=== PATIENT | female | born 1950 | race Hispanic/Latino ===

== ENCOUNTER 2017-12-04 12:26 | Observation (INO) | payer BC, MEDICARE ==
[2017-12-04] MEDS ORDERED: Lidocaine 5% Patch TD ONE (12:53)
--- NOTE | 2017-12-04 13:22 | ED PDOC ---
Arrival/HPI - General Chief Complaint: GI Problem Time Seen by Provider: 12/04/17 12:33 Historian: Patient, Family (sister) - History of Present Illness Narrative History of Present Illness (Text): 12/04/17 13:05 A 67 y/o F w/ h/o myomectomy and scoliosis, presents to the emergency department complaining of back pain and rectal bleeding. She reports having back pain for 2 years. States she is normally prescribed epidurals for her back , but has also been given Tramadol, Naprosen, and Motrin 800 mg, which she states she takes every day for pain. For couple of weeks, patient suddenly began experiencing dark bloody stools, skin pallor, and significant weight loss , which she explains she has never had before. Patient assumes bleeding has been caused by all the NSAIDs that she currently takes. She reports Dr. Zamorano visiting her at home and giving her recommendations to stop taking the medications and seek medical at the emergency room. Patient mentions experiencing weakness, loss of appetite, and has difficulty ambulating due to back pain. Also, patient notes taking stool softener and drinks prune juice every day. Patient denies any abdominal pain or any other complaints at this time. PMD: Dr. Zamorano Time/Duration: > month Symptom Onset: Gradual Symptom Course: Worsening Quality: Aching, Unable to Describe Severity Level: Moderate Context: Home Past Medical History - Provider Review Nursing Documentation Reviewed: Yes - Infectious Disease Hx of Infectious Diseases: None - Reproductive Menopause: Yes - HEENT Hx HEENT Disorder: No - Renal Hx Renal Disorder: No - Endocrine/Metabolic Hx Hypothyroidism: Yes - Musculoskeletal/Rheumatological Hx Back Pain: Yes - Psychiatric Hx Psychophysiologic Disorder: No Hx Substance Use: No - Anesthesia Hx Anesthesia: No Family/Social History - Physician Review Nursing Documentation Reviewed: Yes Family/Social History: No Known Family HX Smoking Status: Current Some Days Smoker Hx Alcohol Use: Yes Frequency of alcohol use: Socially Hx Substance Use: No Allergies/Home Meds Allergies/Adverse Reactions: Allergies Penicillins Allergy (Verified 12/04/17 12:32) ITCHING Review of Systems - Physician Review All systems were reviewed & negative as marked: Yes - Review of Systems Constitutional: Other (weakness due to back pain) Gastrointestinal: Stool Changes (dark bloody stools), Appetite Changes (loss of appetite). absent: Abdominal Pain Musculoskeletal: Back Pain (has difficulty ambulating due to pain) Skin: Normal. absent: Pruritis, Skin Lesions Neurological: absent: Headache, Dizziness, Focal Weakness Hemo/Lymphatic: Easy Bleeding Physical Exam Vital Signs Reviewed: Yes Vital Signs Temp Pulse Resp BP Pulse Ox 12/04/17 15:30 58 L 18 125/68 98 12/04/17 14:12 59 L 18 128/71 98 12/04/17 12:35 97.9 F 74 18 130/74 98 12/04/17 12:32 97.9 F 58 L 18 130/74 98 Temperature: Afebrile Blood Pressure: Normal Pulse: Regular Respiratory Rate: Normal Appearance: Positive for: Cachectic Pain Distress: None Mental Status: Positive for: Alert and Oriented X 3 - Systems Exam Head: Present: Atraumatic, Normocephalic Pupils: Present: PERRL Extroacular Muscles: Present: EOMI Conjunctiva: Present: Normal Mouth: Present: Moist Mucous Membranes Neck: Present: Normal Range of Motion Respiratory/Chest: Present: Clear to Auscultation, Good Air Exchange. No: Respiratory Distress, Accessory Muscle Use, Wheezes, Rales, Rhonchi Cardiovascular: Present: Regular Rate and Rhythm, Normal S1, S2. No: Murmurs Abdomen: No: Tenderness, Distention, Peritoneal Signs, Rebound, Guarding Rectal: Present: Other (FOBT is negative) Back: Present: Normal Inspection Upper Extremity: Present: Normal Inspection. No: Cyanosis, Edema Lower Extremity: Present: Normal Inspection. No: Edema Neurological: Present: GCS=15, CN II-XII Intact, Speech Normal Skin: Present: Pale Psychiatric: Present: Alert, Oriented x 3, Normal Insight, Normal Concentration Medical Decision Making ED Course and Treatment: 12/04/17 13:10 Impression: 67 y/o F with back pain and rectal bleeding most worrisome for GI bleeding Given patient had been having melanotic stools for the last 2 weeks, monitoring of his Hgb and trending for any decrease in blood counts. May consider Protonix drip and consider emergent endoscopy. Differential Diagnosis included but are not limited to: PUD Angiodysplasia Polyp Plan: --EKG --Chest X-ray --Labs --Lidoderm --IVF --Percocet --Reassess and disposition Progress Notes: 12/04/2017 13:47 Chest X-ray IMPRESSION: No active disease. Dictator: Christoph Burns MD Hgb 10.7. Spoke to Dr. Zamorano(PCP) who requests admission to her service with Dr. Conner(GI) as consult. Spoke to Dr. Conner who requests for patient to remain NPO in preparation for endoscopy today. He does not think Protonix infusion is necessary at this time. He states patient may be started on Protonix PO QD. - Lab Interpretations Lab Results: 12/04/17 13:37 12/04/17 13:37 Lab Results 12/04/17 13:53: Blood Type Confirm O POSITIVE 12/04/17 13:37: Blood Type O POSITIVE, Antibody Screen Negative, BBK History Checked No verified bt 12/04/17 13:37: Sodium 143, Potassium 4.5, Chloride 106, Carbon Dioxide 25, Anion Gap 16, BUN 9, Creatinine 0.5 L, Est GFR ( Amer) > 60, Est GFR (Non -Af Amer) > 60, Random Glucose 86, Calcium 9.7, Total Bilirubin 0.3, AST 29, ALT 33, Alkaline Phosphatase 54, Total Protein 7.9, Albumin 4.8, Globulin 3.1, Albumin/Globulin Ratio 1.5 12/04/17 13:37: PT 10.0, INR 0.88, APTT 34.7 12/04/17 13:37: WBC 6.3, RBC 3.19 L, Hgb 10.7 L, Hct 32.3 L, MCV 101.3, MCH 33.5 , MCHC 33.1, RDW 16.4 H, Plt Count 545 H, MPV 8.9, Gran % 56.1, Lymph % (Auto) 31.0, Sargent % (Auto) 8.1 H, Eos % (Auto) 4.3, Baso % (Auto) 0.5, Gran # 3.53, Lymph # (Auto) 2.0, Sargent # (Auto) 0.5, Eos # (Auto) 0.3, Baso # (Auto) 0.03 - RAD Interpretation Radiology Orders: 12/04/17 12:55 CHEST TWO VIEWS (PA/LAT) [RAD] Stat - Medication Orders Current Medication Orders: Sodium Chloride (Sodium Chloride 0.45%) 1,000 mls @ 40 mls/hr IV .Q24H KRISTOPHER Last Admin: 12/04/17 18:25 Dose: 40 mls/hr eMAR Start Stop Document 12/04/17 18:25 GLI (Rec: 12/04/17 18:25 GLI [facility] [id number]) Intravenous Solution Start Date 12/04/17 Start Time 18:25 End Date 12/04/17 Morphine Sulfate (Morphine) 1 mg IVP Q3H PRN PRN Reason: Pain, moderate (4-7) Last Admin: 12/04/17 20:37 Dose: 1 mg MAR Pain Assessment Document 12/04/17 20:37 SRE (Rec: 12/04/17 20:38 SRE [id number]) Pain Reassessment Is this a pain reassessment? No Sleep Is patient sleeping during reassessment? No Presence of Pain Presence of Pain Yes Pain Scale Used Pain Scale Used Numeric Location Pain Location Body Site Back Description Description Chronic Intensity of Pain at present 6 IVP Administration Document 12/04/17 20:37 SRE (Rec: 12/04/17 20:38 SRE [id number]) Charges for Administration # of IVP Administrations 1 Pantoprazole Sodium (Protonix Inj) 40 mg IVP Q12 KRISTOPHER Last Admin: 12/04/17 22:03 Dose: 40 mg IVP Administration Document 12/04/17 22:03 SRE (Rec: 12/04/17 22:03 SRE [id number]) Charges for Administration # of IVP Administrations 1 Discontinued Medications Sodium Chloride (Sodium Chloride 0.9%) 1,000 mls @ 999 mls/hr IV .Q1H1M STA Stop: 12/04/17 14:42 Last Admin: 12/04/17 14:00 Dose: 999 mls/hr eMAR Start Stop Document 12/04/17 14:00 HI (Rec: 12/04/17 15:08 HI [facility] [id number]) Intravenous Solution Start Date 12/04/17 Start Time 14:00 Lidocaine (Lidoderm) 1 ea TD ONCE ONE Stop: 12/04/17 12:54 Last Admin: 12/04/17 14:02 Dose: Not Given Non-Admin Reason: Patient Refused Oxycodone/Acetaminophen (Percocet 5/325 Mg Tab) 1 tab PO STAT STA Stop: 12/04/17 15:01 Last Admin: 12/04/17 15:06 Dose: 1 tab MAR Pain Assessment Document 12/04/17 15:06 HI (Rec: 12/04/17 15:07 HI [facility] [id number]) Pain Reassessment Is this a pain reassessment? No Presence of Pain Presence of Pain Yes Pain Scale Used Pain Scale Used Numeric Location Upper or Lower Lower Pain Location Body Site Back Description Pain Behavior Crying Facial Grimacing Re-Assess: [facility] Pain Assessment Document 12/04/17 16:06 GLI (Rec: 12/04/17 18:26 GLI [facility] [id number]) Pain Reassessment Is this a pain reassessment? No Sleep Is patient sleeping during reassessment? No Presence of Pain Presence of Pain No Pantoprazole Sodium (Protonix Inj) 40 mg IVP BID KRISTOPHER - Scribe Statement The provider has reviewed the documentation as recorded by the Lucero Arndt Provider Scribe Provider Scribe Attestation: All medical record entries made by the Scribe were at my direction and personally dictated by me. I have reviewed the chart and agree that the record accurately reflects my personal performance of the history, physical exam, medical decision making, and the department course for this patient. I have also personally directed, reviewed, and agree with the discharge instructions and disposition. Disposition/Present on Arrival - Present on Arrival Any Indicators Present on Arrival: No History of DVT/PE: No History of Uncontrolled Diabetes: No Urinary Catheter: No History of Decub. Ulcer: No History Surgical Site Infection Following: None - Disposition Have Diagnosis and Disposition been Completed?: Yes Diagnosis: GI bleed Disposition: HOSPITALIZED Disposition Time: 14:31 Patient Plan: Admission Patient Problems: Current Active Problems Problem Status Onset GI bleed Acute Condition: STABLE
[2017-12-04] MEDS ORDERED: Sodium Chloride 0.9% 1,000 ML IV STA (13:42)
--- NOTE | 2017-12-04 13:49 | RAD ---
Date of service: 12/04/2017 HISTORY: Pre-procedure COMPARISON: No prior. TECHNIQUE: Chest PA and lateral FINDINGS: LUNGS: Hyperinflation, manifestations of COPD. No active pulmonary disease. PLEURA: No significant pleural effusion identified. No pneumothorax apparent. CARDIOVASCULAR: No radiographic findings to suggest acute or significant cardiovascular disease. OSSEOUS STRUCTURES: No significant abnormalities. VISUALIZED UPPER ABDOMEN: Normal. OTHER FINDINGS: None. IMPRESSION: No active disease.
[2017-12-04 13:50] LABS: BASO # 0.03 K/mm3 (0.0-2.0); BASO % 0.5 % (0.0-3.0); EOS # 0.3 (0.0-0.7); EOS % 4.3 % (1.5-5.0); GRAN # 3.53 (1.4-6.5); GRAN % 56.1 % (50.0-68.0); HEMOGLOBIN 10.7 g/dL (12.0-16.0); MEAN CELL VOLUME 101.3 fl (80.0-105.0); MEAN CORPUSCULAR HEMOGLOBIN 33.5 pg (25.0-35.0); MEAN CORPUSCULAR HGB CONC 33.1 g/dl (31.0-37.0); MEAN PLATELET VOLUME 8.9 fl (7.0-11.0); MONO # 0.5 (0.1-0.6); MONO % 8.1 % (1.0-6.0); RBC 3.19 10^6/uL (3.5-6.1); RED CELL DISTRIBUTION WIDTH 16.4 % (11.5-14.5); WHITE BLOOD COUNT 6.3 10^3/ul (4.5-11.0)
[2017-12-04 13:59] LABS: ALB/GLOB RATIO 1.5 (1.1-1.8); ALBUMIN 4.8 g/dL (3.0-4.8); ALT/SGPT 33 U/L (7-56); AST/SGOT 29 U/L (14-36); BLOOD UREA NITROGEN 9 mg/dL (7-21); CALCIUM 9.7 mg/dL (8.4-10.5); GFR AFRICAN-AMERICAN > 60; GFR NON-AFRICAN AMERICAN > 60
[2017-12-04 14:01] LABS: PARTIAL THROMBOPLASTIN TIME 34.7 Seconds (25.1-36.5)
[2017-12-04 14:14] LABS: INR 0.88
[2017-12-04] MEDS ORDERED: Oxycodone/Acetaminophen 5/325 mg Tab PO STA (15:00)
--- NOTE | 2017-12-04 15:35 | CP.PCM.CON ---
History of Present Illness - History of Present Illness History of Present Illness: GI Fellow PGY5 Consult Note This is a 67yF with pmhx of chronic low back pain from severe scoliosis, myomectomy who presents to the emergency department complaining of back pain and black stool. Patient reports noting black stool for 1.5 weeks now with multiple BMs daily. No prior hx of rectal bleeding, melena or hematochezia. Patient reports she has had back pain for years and has been taking Tramadol, Naproxin or Motrin 600 mg, which she states she takes every day for pain. Afterwards for couple of weeks, patient suddenly began experiencing dark bloody stools. Pt denies taking Peptobismol but started taking iron three days ago after dark stools. After following-up with PMD Dr. Zamorano, he recommends patient stop taking the medications and seek medical at the emergency room. She notes noticing having significant weight loss based on her clothes feeling looser, and that her skin has become paler. Patient mentions experiencing weakness, loss of appetite, and has difficulty ambulating due to back pain. She also takes excedrin 2-3 times a week for headaches. Patient denies any abdominal pain, N/V, GERD. No prior hx of PUD. She had an EGD/Colonoscopy with Dr. Alicia in 2012. Pt is not on any OAC and no anti platelets. ROS: A 12pt ROS was negative except as above PmHx: As stated above PsHx: None reported SHx: Denies tobacco, etoh or drugs FHx: Neg for colon cancer Past Patient History - Infectious Disease Hx of Infectious Diseases: None - Past Social History Smoking Status: Current Some Days Smoker - HEENT Hx HEENT Problems: No - RENAL Hx Chronic Kidney Disease: No - ENDOCRINE/METABOLIC Hx Hypothyroidism: Yes - MUSCULOSKELETAL/RHEUMATOLOGICAL Hx Back Pain: Yes - PSYCHIATRIC Hx Psychophysiologic Disorder: No Hx Substance Use: No - ANESTHESIA Hx Anesthesia: No Meds Allergies/Adverse Reactions: Allergies Allergy/AdvReac Type Severity Reaction Status Date / Time Penicillins Allergy ITCHING Verified 12/04/17 12:32 - Medications Medications: Current Medications Pantoprazole Sodium (Protonix Inj) 40 mg IVP BID KRISTOPHER Physical Exam - Constitutional Appears: Non-toxic, No Acute Distress, Cachectic - Head Exam Head Exam: ATRAUMATIC, NORMAL INSPECTION, NORMOCEPHALIC - Eye Exam Eye Exam: EOMI, Normal appearance, PERRL Pupil Exam: PERRL - ENT Exam ENT Exam: Mucous Membranes Moist - Neck Exam Neck exam: Positive for: Full Rom, Normal Inspection - Respiratory Exam Respiratory Exam: Clear to Auscultation Bilateral, NORMAL BREATHING PATTERN - Cardiovascular Exam Cardiovascular Exam: REGULAR RHYTHM, RRR, +S1, +S2 - GI/Abdominal Exam GI & Abdominal Exam: Normal Bowel Sounds, Soft. absent: Distended, Firm, Guarding, Organomegaly, Tenderness - Rectal Exam Rectal Exam: NORMAL INSPECTION. absent: Black Stool, Bloody Stool, Hemorrhoids , Fecal Impaction Additional comments: no stool in rectal vault, no hemtochezia - Extremities Exam Extremities exam: Positive for: full ROM, normal inspection - Neurological Exam Neurological exam: Alert, Oriented x3 - Psychiatric Exam Psychiatric exam: Anxious, Normal Affect, Normal Mood - Skin Skin Exam: Dry, Intact, Pallor, Warm Results - Vital Signs Recent Vital Signs: Last Vital Signs Temp 97.9 F 12/04/17 12:35 Pulse 59 L 12/04/17 14:12 Resp 18 12/04/17 14:12 BP 128/71 12/04/17 14:12 Pulse Ox 98 12/04/17 14:12 - Labs Result Diagrams: 12/04/17 13:37 12/04/17 13:37 Labs: Laboratory Results - last 24 hr 12/04/17 12/04/17 12/04/17 13:37 13:37 13:37 WBC 6.3 RBC 3.19 L Hgb 10.7 L Hct 32.3 L MCV 101.3 MCH 33.5 MCHC 33.1 RDW 16.4 H Plt Count 545 H MPV 8.9 Gran % 56.1 Lymph % (Auto) 31.0 Martin % (Auto) 8.1 H Eos % (Auto) 4.3 Baso % (Auto) 0.5 Gran # 3.53 Lymph # (Auto) 2.0 Martin # (Auto) 0.5 Eos # (Auto) 0.3 Baso # (Auto) 0.03 PT 10.0 INR 0.88 APTT 34.7 Sodium 143 Potassium 4.5 Chloride 106 Carbon Dioxide 25 Anion Gap 16 BUN 9 Creatinine 0.5 L Est GFR ( Amer) > 60 Est GFR (Non-Af Amer) > 60 Random Glucose 86 Calcium 9.7 Total Bilirubin 0.3 AST 29 ALT 33 Alkaline Phosphatase 54 Total Protein 7.9 Albumin 4.8 Globulin 3.1 Albumin/Globulin Ratio 1.5 Blood Type Blood Type Confirm Antibody Screen BBK History Checked 12/04/17 12/04/17 13:37 13:53 WBC RBC Hgb Hct MCV MCH MCHC RDW Plt Count MPV Gran % Lymph % (Auto) Martin % (Auto) Eos % (Auto) Baso % (Auto) Gran # Lymph # (Auto) Martin # (Auto) Eos # (Auto) Baso # (Auto) PT INR APTT Sodium Potassium Chloride Carbon Dioxide Anion Gap BUN Creatinine Est GFR ( Amer) Est GFR (Non-Af Amer) Random Glucose Calcium Total Bilirubin AST ALT Alkaline Phosphatase Total Protein Albumin Globulin Albumin/Globulin Ratio Blood Type O POSITIVE Blood Type Confirm O POSITIVE Antibody Screen Negative BBK History Checked No verified bt Assessment & Plan - Assessment and Plan (Free Text) Assessment: This is a 67yF presenting with complaints of melena. 1. Rectal bleeding 2. Anemia 3. Scoliosis and LBP 4. Weightloss Plan: -Continue supportive care -No active GI bleeding, neg rectal exam, hemodynamically stable -Monitor H/H and transfuse for goal >7 -Hx of NSAID use ddx PUD, AVMs, Gastritis -PPI IV Bid -Clear liquid diet today -NPO after midnight -Plan for EGD tomorrow -Will continue to follow pt closely The above H/P and A/P was discussed with attending physician Dr. Conner who agrees with the above mentioned plan of care.
--- NOTE | 2017-12-04 17:46 | CARD ---
APPROVED REPORT Date of service: 12/04/2017 EKG Measurement Heart [id number] <Conclusion> Sinus bradycardia Otherwise normal ECG
[2017-12-04] MEDS ORDERED: Sodium Chloride 0.45% 1,000 ML IV SCH (18:15)
[2017-12-04] MEDS: Morphine 2 mg/ml ISec IVP PRN (20:37)
--- NOTE | 2017-12-05 02:01 | HP ---
Copied To: Christoph Zamorano DO Attending MD: Christoph Zamorano DO HISTORY OF PRESENT ILLNESS: I did a house call on Doris last week when she was having gross blood and black stools for a couple weeks at her house. She is very weak, pale. She is a 67-year-old female who has severe scoliosis and severe back pain. She is to get epidurals and now she could barely walk without a cane or help and she has been taking a lot of NSAIDs and Motrin and Advil up to 800 mg 3 or 4 times a day. I think she is having an upper GI bleed. I did stop all that. She refused to go hospital when I first saw her and I put her on iron and now she was having bright red blood again today, so I sent her to [facility]. She is a 67-year-old female with history of myomectomy, scoliosis, spinal stenosis, history of epidurals in the past for severe back pain. She was getting tramadol for pain, which helped with the Naprosyn, Motrin and she started to mix everything up and I think she is having an upper ulcer bleed. She is also pale. There is significant weight loss. She also was bleeding and I believe it was from the NSAIDs and I asked her to go to the emergency room and after a week, she finally agreed to go. She is very weak and a little bit lethargic and lightheaded. She is also under a lot of stress. She is being forced to leave her apartment and the apartment is filled with furniture and lots of things that she cannot do anything because of she has got back pain, also hypothyroidism. SOCIAL HISTORY: She is a smoker. She does drink alcohol socially and no substance abuse. ALLERGIES: SHE IS ALLERGIC TO PENICILLIN. MEDICATIONS: She did not bring her medicine with her today. REVIEW OF SYSTEMS: She is very weak, pale, lightheaded. She has severe back pain. She has stools that were dark, but they were also bloody in the beginning of last week, loss of appetite. No abdominal pain. No chest pain or palpitations. Decreased breath sounds but no shortness of breath or cough. Skin is thin and frail and fair turgor. No apparent rashes or ulcers that she knows about. No headache or dizziness. There is focal weakness and very easy bleeding. PHYSICAL EXAMINATION: VITAL SIGNS: She has a 97.9 temperature, 59 pulse, 18 respiratory rate, 120/71 blood pressure, 98% O2 sat. GENERAL: She is alert and oriented x3, cachectic, thin, frail. HEENT: Head is atraumatic, normocephalic. Extraocular muscles are intact. Pupils equal and reactive to light and accommodation. Throat is dry. NECK: Supple. LUNGS: Decreased breath sounds bilaterally, poor air exchange. No wheezes, rhonchi or rales. HEART: Regular rate. Normal S1, S2. ABDOMEN: Soft, nontender. Positive bowel sounds. No guarding, no rebound, no CVA tenderness. RECTAL: We did a rectal exam which was negative in the ER. There was bright blood a week ago and dark stools before I put her on iron. EXTREMITIES: The legs have no edema. NEUROLOGIC: She has curvature of the spine, severe scoliosis. GCS is 15. Cranial nerves II-XII grossly intact. Normal speech. SKIN: She is very pale. LYMPHATICS: Thyroid midline. No palpable appreciable lymphadenopathy. PSYCHIATRIC: Alert and oriented x3. She is very depressed and sad due to her situation at her home where she has to be moved out of her place in the next by end of the month. LABORATORY DATA: She had lots of tests done here. She has 143 sodium, potassium 4.5, BUN 9, creatinine 0.5, GFR is greater than 60, sugar is 86, calcium is 9.7, total bili is 0.3, AST is 29, ALT is 33, alk phos 54, total protein 7.9, albumin is 4.8, INR is 0.88. White count 6.3, hemoglobin 10.7, hematocrit 32.3, platelets are 545. She also had chest x-ray. EKG was sinus herb at 55. Chest x-ray was no acute disease. The chest CAT, abdomen and pelvis pending. ASSESSMENT AND PLAN: I called the GI doctors, they will do endoscopy tomorrow. She will be n.p.o. tonight, liquid diet. I am also going to call an anesthesiologist for possible epidural tomorrow. Hopefully she will do well and she is here for gastrointestinal bleed, severe back pain. Christoph Zamorano DO [facility] # [phone]
[2017-12-05 06:57] LABS: HEMOGLOBIN 9.3 g/dL (12.0-16.0); MEAN CELL VOLUME 102.1 fl (80.0-105.0); MEAN CORPUSCULAR HEMOGLOBIN 32.9 pg (25.0-35.0); MEAN CORPUSCULAR HGB CONC 32.2 g/dl (31.0-37.0); MEAN PLATELET VOLUME 8.9 fl (7.0-11.0); RBC 2.83 10^6/uL (3.5-6.1); RED CELL DISTRIBUTION WIDTH 16.6 % (11.5-14.5); WHITE BLOOD COUNT 5.1 10^3/ul (4.5-11.0)
[2017-12-05 07:14] LABS: ALB/GLOB RATIO 1.4 (1.1-1.8); ALBUMIN 3.7 g/dL (3.0-4.8); ALT/SGPT 31 U/L (7-56); AST/SGOT 40 U/L (14-36); BLOOD UREA NITROGEN 7 mg/dL (7-21); CALCIUM 9.1 mg/dL (8.4-10.5); GFR AFRICAN-AMERICAN > 60; GFR NON-AFRICAN AMERICAN > 60
--- NOTE | 2017-12-05 09:04 | CT ---
Date of service: 12/04/2017 PROCEDURE: CT Chest, Abdomen and Pelvis without intravenous contrast HISTORY: need it tonight going for endo tomorrow COMPARISON: None available. TECHNIQUE: Radiation dose: Total exam DLP = 312 mGy-cm. This CT exam was performed using one or more of the following dose reduction techniques: Automated exposure control, adjustment of the mA and/or kV according to patient size, and/or use of iterative reconstruction technique. FINDINGS: CT CHEST WITHOUT CONTRAST: LUNGS: Clear. No nodule, mass or consolidation. Mild emphysematous changes MEDIASTINUM: Unremarkable. Normal caliber aorta and pulmonary arterial trunk. Normal size heart. LYMPH NODES: Unremarkable. PLEURA: Unremarkable. No pneumothorax. No pleural fluid. BONES: Unremarkable. OTHER FINDINGS: None. CT ABDOMEN AND PELVIS: LIVER: Unremarkable. No gross lesion or ductal dilatation. GALLBLADDER AND BILE DUCTS: Unremarkable. PANCREAS: Unremarkable. No gross lesion or ductal dilatation. SPLEEN: Unremarkable. ADRENALS: Unremarkable. No mass. KIDNEYS AND URETERS: Unremarkable. No hydronephrosis. No solid mass. VASCULATURE: Unremarkable. No aortic aneurysm. BOWEL: Unremarkable. No obstruction. No gross mural thickening. Study is limited by the lack of oral and IV contrast. APPENDIX: Normal appendix. PERITONEUM: Unremarkable. No free fluid. No free air. LYMPH NODES: Unremarkable. No enlarged lymph nodes. BLADDER: Unremarkable. REPRODUCTIVE: Unremarkable. BONES: There is severe scoliosis of the lumbar spine convex to the left. There is associated disc degeneration OTHER FINDINGS: The report concurs with the preliminary [facility] report IMPRESSION: No acute findings
[2017-12-05] MEDS: Morphine 2 mg/ml ISec IVP PRN (10:40)
[2017-12-05] MEDS ORDERED: Lidocaine 1% Inj (20ml) ONE ×2 (11:26→11:37)
[2017-12-05] MEDS ORDERED: Propofol 10 mg/ml Inj (20 ML) ONE ×2 (11:26→11:37)
[2017-12-05 11:57] VITALS: TEMP 97.7
[2017-12-05] MEDS ORDERED: Sodium Chloride 0.9% 1,000 ML IV SCH (12:00)
[2017-12-05 12:08] VITALS: RESP 18
[2017-12-05 12:18] VITALS: BP 140/72
--- NOTE | 2017-12-05 13:05 | DS ---
Copied To: Christoph Zamorano DO Attending MD: Christoph Zamorano DO HISTORY OF PRESENT ILLNESS: She is currently in endoscopy, getting upper endoscopy. I am also trying to get her an epidural with Dr. Griffiths. I do not know if he could come in and do it. She is on morphine, Protonix and IV fluids. She has a lot of back pain and she is having GI bleeding. Hopefully, it stopped with the Protonix and we will see what the endoscopy has to say. If I can discharge her later today, I will if it is okay with GI. PHYSICAL EXAMINATION: VITAL SIGNS: She has a 97 temp, 60 pulse, 108/63 blood pressure, 20 respiratory rate, 98% O2 sat on room air. HEENT: Head is atraumatic, normocephalic. HEART: Regular rate. LUNGS: Decreased breath sounds, but clear. ABDOMEN: Soft, nontender. Positive bowel sounds. EXTREMITIES: No edema. She is currently on morphine, Protonix and IV fluids. LABORATORY DATA: She has a 5.1 white count; 9.3 hemoglobin, she went from 10.7 to 9.3 and she is still actively bleeding, she tells me; 28.9 hematocrit with 531 platelets. She has a 141 sodium, potassium 3.9, BUN 7, creatinine 0.5, GFR is greater than 60, sugar is 82, calcium is 9.1, total bili is 0.2, AST is 40, ALT is 31, alk phos 39, total protein 6.4. ASSESSMENT AND PLAN: She was transfused. She had a CAT scan of the chest, abdomen and pelvis. She is a heavy smoker, having abdominal discomfort, GI bleed. We will see what we have. No acute findings. She is wonderful. I am hoping that after the upper endoscopy, she can be discharged and we will have to try and get her to an outpatient epidural if she does well with this upper endoscopy. I do not know pain with severe spinal stenosis. Hopefully to do well and we will see her on the outpatient. Christoph Zamorano DO [place]
[2017-12-05 15:05] VITALS: PULSE 53
[2017-12-05 16:30] VITALS: O2SAT 95
== END 2017-12-05 17:17 | disposition home or self-care (01) ==
LOC: ED 12:26 → INTOOBSV 14:38 → ERH 14:38 → 2RNO 16:08
PROVIDERS: ADMIT Family Medicine; ATTEND Family Medicine
DX: K62.5 Hemorrhage of anus and rectum (principal); K25.9 Gastric ulcer, unspecified as acute or chronic, without hemorrhage or perforation; K29.50 Unspecified chronic gastritis without bleeding; D64.9 Anemia, unspecified; M41.9 Scoliosis, unspecified; M54.5 Low back pain; E03.9 Hypothyroidism, unspecified; F17.200 Nicotine dependence, unspecified, uncomplicated; Z88.0 Allergy status to penicillin
CPT/HCPCS: 36415; 43239; 71046; 71250; 74176; 80053; 85025; 85027; 85610; 85730; 86850; 86900; 88305; 88342; 93005; 96374; 96375; 96376; 99285; C9113; G0378; J2270; J2704; J7030; J7040